=== PATIENT | male | born 1995 | race Caucasian/White ===

== ENCOUNTER 2023-03-23 09:48 | Outpatient (CLI) | payer OTHER, SELFPAY ==
[2023-03-23 19:28] LABS: Hepatitis B Surface Anti Res Indeterminate
[2023-03-26 12:28] LABS: NIL 0.05 IU/mL; Quantiferon TB Plus, 1T NEGATIVE (NEGATIVE); TB1-NIL <0.00 IU/mL; TB2-NIL 0.01 IU/mL
[2023-03-29 04:35] LABS: Rubeola Measles IgG >300.00 AU/mL
== END 2023-03-23 09:49 | disposition home or self-care (01) ==
LOC: ANHGOSHLAB 09:50
PROVIDERS: PCP Pediatrics; Visit Provider Nurse Practitioner
DX: Z00.00 Encounter for general adult medical examination without abnormal findings (principal); Z28.39 Other underimmunization status
CPT/HCPCS: 36415; 86480; 86706; 86735; 86765; 86787